=== PATIENT | female | born 1990 | race Caucasian/White ===

== ENCOUNTER 2017-02-08 05:53 | Inpatient (IN) ==
[2017-02-08] MEDS ORDERED: ONDANSETRON 4 MG/2 ML VIAL IV PRN ×2 (06:21→08:59)
[2017-02-08] MEDS: LACTATED RINGERS 1,000 ML IV SCH ×3 (06:33→15:08)
[2017-02-08] MEDS ORDERED: FAMOTIDINE 20 MG/2 ML VIAL IV ONE (06:43)
[2017-02-08] MEDS ORDERED: CITRIC ACID/SODIUM CITRATE 30 ML UDCUP PO ONE (06:43)
[2017-02-08] MEDS ORDERED: hydrALAZINE 20 MG/1 ML VIAL IV ONE (06:44)
[2017-02-08] MEDS ORDERED: OXYTOCIN/LR 20 UNIT/1,000 ML BAG IV ONE ×5 (06:48→08:59)
[2017-02-08] MEDS ORDERED: HYDROmorphone 2 MG/1 ML VIAL ONE (06:48)
[2017-02-08] MEDS ORDERED: ceFAZolin 2,000 MG in PREMIX 1 EACH IV ONE ×2 (06:48→06:58)
--- NOTE | 2017-02-08 07:01 | OB/GYN History & Physical ---
History of Present Illness Chief complaint: at 30 weeks IUFD PIH beginning at 20 weeks History of present illness: Ms. Velarde is a 26 year old female 2 para 1 at 30 weeks just gestational age previous who has been seen by perinatology every 3 weeks in conjunction with my office for PIH beginning at 20 weeks. Patient is currently on polypharmacy for blood pressure regulation coordinated by Dr. Gabriel. Patient was seen earlier this week on Saturday in my office had a biophysical 8 out of 8 with normal fluid and no evidence of abnormality. She was seen [address] Gabriel's office and was noted to have a acute IUFD with normal fluid and no visible abnormality but absent cardiac activity. By his ultrasound patient been running in the 45th percentile on estimated weight. I discussed the case with Dr. Sanchez who is doing additional blood work to try to determine potential cause for this early onset PIH and demise. Patient did not have any of this with her first . The options were discussed with the patient and Dr. Zayas and I both believe that the best way to conclude this is with hysterotomy and evacuation of the uterus under general anesthesia. Patient has Yin rods in her back and does not wish to be awake during the procedure. She is consequently scheduled for hysterotomy this morning. The risks benefits and alternatives were explained the patient in detail and family and informed consent was obtained and all questions were answered to there satisfaction. Home Medications Medication Instructions Recorded Confirmed Type Labetalol Tab [Trandate Tab] 200 mg PO BID 12/14/16 12/14/16 History Pnv95/Ferrous Fumarate/FA 1 tablet PO DAILY 12/14/16 12/14/16 History [ Tablet] Allergies Allergy/AdvReac Type Severity Reaction Status Date / Time No Known Allergies Allergy Verified 12/14/16 10:37 12 point system: reviewed and no additional remarkable complaints except as stated Medical,Surgical,& Family Hx - Medical History Genitourinary: History of: Kidney Stones Musculoskeletal: History of: Back/Neck Problems No history of: Amputation - Surgical History Cardiac Surgeries: Patient Denies: Cardiac Catheterization Thoracic Surgeries: Patient denies;: Lobectomy Neurologic Surgeries: Patient denies: Neurologic Surgery Reproductive Surgeries: Surgical HX of;: Section (pre eclampsia), Genitourinary Surgery (renal stent placed by Dr. 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 General appearance: normal weight - Head Head exam: Present: normal inspection, atraumatic - ENT ENT exam: Present: other (Facial edema) - Neck Neck exam: Present: normal inspection - Respiratory Respiratory exam: Present: clear to auscultation bilaterally - Breast Breasts: as per HPI Menstruation: as per HPI - Cardiovascular Cardiovascular exam: Present: regular rate and rhythm - GI/Abdominal GI/Abdominal exam: Present: normal bowel sounds - Extremities Exam Extremities exam: Present: normal inspection, normal capillary refill - Back Exam Back exam: Present: normal inspection - Neurological Exam Neurological exam: Present: alert, oriented X3 - Psychiatric Psychiatric exam: Present: anxious - Skin Skin exam: Present: normal color, warm Assessment and Plan (1) demise in forman greater than 22 weeks gestation, antepartum Status: Acute Current Visit: Yes (2) Severe hypertension Status: Acute Current Visit: Yes (3) Previous section Status: Acute Current Visit: Yes
[2017-02-08] MEDS ORDERED: LABETALOL 100 MG/20 ML VIAL IV ONE (07:08)
[2017-02-08] MEDS ORDERED: hydrALAZINE 20 MG/1 ML VIAL ONE (07:08)
[2017-02-08] MEDS ORDERED: NEOSTIGMINE 10 MG/10 ML VIAL ONE (07:08)
[2017-02-08] MEDS ORDERED: ONDANSETRON 4 MG/2 ML VIAL ONE (07:08)
[2017-02-08] MEDS ORDERED: SUCCINYLCHOLINE 200 MG/10 ML VIAL ONE (07:08)
[2017-02-08] MEDS ORDERED: ROCURONIUM 100 MG/10 ML VIAL IV ONE (07:08)
[2017-02-08] MEDS ORDERED: PROMETHAZINE 25 MG/1 ML VIAL ONE (07:08)
[2017-02-08] MEDS ORDERED: GLYCOPYRROLATE 0.4 MG/2 ML VIAL ONE (07:08)
[2017-02-08] MEDS ORDERED: PROPOFOL 200 MG/20 ML VIAL IV ONE (07:08)
[2017-02-08] MEDS ORDERED: DEXAMETHASONE 4 MG/1 ML VIAL ONE (07:08)
[2017-02-08 07:09] LABS: Basophils % 0.3 % (0.0-0.8); Eosinophils % 0.6 % (0.00-10.9); Hematocrit 30.2 VOL% (35.7-47.0); Hemoglobin 11.1 GM/DL (12.0-16.0); Immature Granulocytes % 0.4 %; Immature Granulocytes Absolute 0.03 #; Lymphocytes # 1.8 10*3/uL (1.4-4.0); Lymphocytes % 25.5 % (21.3-54.2); Mean Corpuscular HGB Conc 36.8 GM/DL (32-36); Mean Corpuscular Hemoglobin 31 PG (27-34); Mean Corpuscular Volume 84.1 FL (87-102); Mean Platelet Volume 9.2 FL (9.6-12.0); Monocytes # 0.7 10*3/uL (0.11-0.8); Monocytes % 9.2 % (1.7-12.7); Neutrophils # 4.6 10*3/uL (1.4-7.4); Platelet Count 149 T/CUMM (130-400); Red Blood Count 3.59 MC/CUMM (3.8-5.5); Red Cell Distribution Width 12.6 % (9.3-17.3); White Blood Count 7.1 T/CUMM (4-12)
[2017-02-08 07:26] LABS: INR 0.9; PT Patient Result 9.7 SECS; Partial Thromboplastin Time 24.5 SECS (0-40)
[2017-02-08 07:44] LABS: Albumin 1.9 G/DL (3.4-5.0); Bilirubin,Total 0.4 MG/DL (0.2-1.0); Calcium 8.1 MG/DL (8.5-10.1); Osmolality,Calculated 277.4 MOS/KG (273-304); Uric Acid 4.7 MG/DL (2.6-6.0)
[2017-02-08 08:54] LABS: Apearance,Urine CLEAR (Clear); Bacteria,Urine Many /HPF (Few); Bilirubin,Urine Negative (Negative); Blood, Urine Negative (Negative); Glucose,Urine (UA) Negative (Negative); Ketones,Urine Negative (Negative); Mucus,Urine Occasional /LPF (Occasional); Nitrite,Urine Negative (Negative); Protein,Urine 100 MG/DL; RBC,Urine 3 /HPF (0-4); Urine Color Straw (Yellow); Urine Specific Gravity 1.004 (1.001-1.035); Urine Urobilinogen < 2.0 EU/DL (0.2-1.0); WBC,Urine 5 /HPF (0-6)
[2017-02-08] MEDS ORDERED: diphenhydrAMINE 50 MG/1 ML VIAL IV PRN ×2 (08:56)
[2017-02-08] MEDS ORDERED: hydrOXYzine HCL 25 MG/1 ML VIAL IM PRN (08:56)
--- NOTE | 2017-02-08 08:58 | Operative Note ---
Date of procedure: 02/08/17 Pre-op diagnosis: demise at 30 weeks hypertension since 20 weeks with acute exacerbatio Post-op diagnosis: same Procedure: This is Dr. Canchola dictating operative note: Preoperative diagnosis intrauterine intrauterine at 30 weeks 2. demise 3. Previous 4. Hypertension since 20 weeks with acute exacerbation followed jointly with perinatology Postoperative diagnosis same Procedure repeat /hysterotomy Surgeon Dr. Canchola Anesthesia [general endotracheal] Findings non-liveborn infant weight 2 lbs. 2 oz. 2. Light meconium-stained fluid 3. Normal-appearing placenta Complications none Estimated blood loss [400] mL Disposition patient to recovery room in [stable] condition. Operative description: After the risks benefits and alternatives were explained to the patient in detail and informed consent was obtained, the patient was taken to the operating room where she was placed in the supine position. After achieving appropriate anesthesia the abdomen was prepped and draped in the usual sterile fashion. A Dawson catheter was placed without difficulty. After the appropriate time out and after adequate anesthesia was ascertained a Pfannenstiel skin incision was made and carried down through the subcutaneous tissue down to the fascia. The fascia was nicked in the midportion and undermined and incised both laterally and cephalad using sharp dissection with the curved Anderson scissors. 2 Garcia clamps were used to elevate the rectus fascia superiorly which was bluntly and sharply dissected away from the rectus muscle below. This was repeated inferiorly. The rectus muscles were then bluntly in the midline the peritoneum identified grasped with 2 curved hemostats and entered sharply using the curved Metzenbaum scissors. A bladder blade was then placed in the pelvis and a bladder flap was created off the lower uterine segment using sharp dissection with the Metzenbaum scissors. The bladder blade was then repositioned. A transverse incision was made across the lower uterine segment down to the amnion. Entry into the amnion revealed light meconium stained fluid. The uterine incision was extended laterally using bilateral finger fractionation and the nonviable was vertex presentation and was extracted without difficulty. The cord was doubly clamped cut and there was no gross visible abnormality associated with the . The placenta was manually extracted and again there was no evidence of any gross abnormality. The uterus was then exteriorized and placed in a wet laparotomy sponge. 2 fingers wrapped around a wet laparotomy sponge were used to remove all residual membranes from the uterine cavity. The uterus was then closed in 2 layers. The first layer of myometrium was closed with #1 Monocryl suture in an inner locking fashion beginning at both angles and overlapping slightly in the midline. The second layer of myometrium was closed with #1 Monocryl suture in a running imbricating stitch beginning at the right angle and continuing the length of the uterine incision. Hemostasis was noted to be excellent. The posterior cul-de-sac was then irrigated and cleansed with a wet laparotomy sponge and the uterus was placed back in the abdominal cavity. Both pericolic gutters were then irrigated and cleansed with a wet lap sponge. The uterine incision was then re-irrigated and again noted to be hemostatic. All counts were noted to be correct. The subcutaneous tissue was then closed using 3-0 Vicryl suture in a running fashion. The subfascial area was made hemostatic using electrocautery and closed with #1 PDS suture in a running fashion beginning at both angles and overlapping slightly in the midline. The subcutaneous tissue was irrigated and made hemostatic using electrocautery and closed with 2-0 Vicryl suture in a running fashion and the skin was closed with wide skin adi and a sterile pressure bandage was applied to the wound. All sponge needle and instrument counts were correct -3 at the end of the procedure. The patient's urine was [clear] both at the beginning in the end of the procedure. The patient was taken to the recovery room in stable condition Anesthesia: CIPRIANO Surgeon / Physician: Niko Canchola Estimated blood loss: other (400) Specimens: other (Placenta to pathology infant prepared for reviewing) Condition: stable Disposition: floor Results - Labs CBC & BMP: 02/08/17 07:02 02/08/17 07:02 Discharge Plan - Discharge Medications No Action Pnv95/Ferrous Fumarate/FA [ Tablet] 1 tablet PO DAILY Labetalol Tab [Trandate Tab] 500 mg PO BID - Follow Up or Referral - Forms/Instructions
[2017-02-08] MEDS ORDERED: ACETAMINOPHEN 325 MG TABLET PO PRN (08:59)
[2017-02-08] MEDS ORDERED: oxyCODONE/ACETAMINOPHEN 5-325 MG TABLET PO PRN (08:59)
[2017-02-08] MEDS ORDERED: WITCH HAZEL PADS 100/JAR TOP PRN (08:59)
[2017-02-08] MEDS ORDERED: LANOLIN 50% CREAM 0.3 OZ TUBE TOP PRN (08:59)
[2017-02-08] MEDS ORDERED: DIPH/TET/ACEL PERT BOOSTER VACCINE 0.5 ML VIAL IM ONE (08:59)
[2017-02-08] MEDS ORDERED: IBUPROFEN 800 MG TABLET PO PRN (08:59)
[2017-02-08] MEDS ORDERED: BISACODYL 10 MG SUPP RECTAL PRN (08:59)
[2017-02-08] MEDS ORDERED: BENZOCAINE 20%/MENTHOL 0.5% SPRAY 56 GM CAN TOP PRN (08:59)
[2017-02-08] MEDS ORDERED: MEASLES/MUMPS/RUBELLA VACCINE 0.5 ML VIAL SUBCUT ONE (08:59)
[2017-02-08] MEDS ORDERED: RHO(D) IMMUNE GLOBULIN 300 MCG SYRINGE IM ONE (08:59)
[2017-02-08] MEDS ORDERED: HYDROCORTISONE 2.5% RECTAL CREAM 30 GM TUBE TOP PRN (08:59)
[2017-02-08] MEDS ORDERED: HYDROmorphone PCA 30 MG/30 ML SYRINGE IV SCH (09:00)
[2017-02-08] MEDS ORDERED: MIDAZOLAM 2 MG/2 ML VIAL ONE (09:32)
[2017-02-08] MEDS ORDERED: SEVOFLURANE 1 UNIT/15 MINUTE INH ONE (09:32)
[2017-02-08] MEDS ORDERED: fentaNYL 100 MCG/2 ML VIAL ONE (09:33)
[2017-02-08] MEDS ORDERED: SCOPOLAMINE 1.5 MG PATCH TRANSDERM ONE (09:33)
[2017-02-08] MEDS: KETOROLAC 30 MG/1 ML VIAL IV SCH ×3 (10:00→21:48)
[2017-02-08] MEDS: LABETALOL 200 MG TABLET PO SCH ×2 (13:45→21:48)
--- NOTE | 2017-02-08 14:49 | Anesthesia ---
Anesthesia Post OP - Post Ansesthetic Evaluation Patient seen in post op: Yes Resp: within normal limits CV: within normal limits Mental: within normal limits Temp: within normal limits [id number]-[id number]-Ansdnzsmp: within normal limits Nausea and Vomiting: within normal limits Pain: within normal limits
[2017-02-08] MEDS ORDERED: POTASSIUM CHLORIDE 20 MEQ TABLET PO ONE (17:07)
--- NOTE | 2017-02-08 17:10 | Hospitalist Consult Note ---
Assessment and Plan (1) Severe hypertension Status: Acute Assessment and plan: I believe the patient has essential hypertension underlying and prior to this . She will likely need to start on an angiotensin receptor jurgen with a diuretic component. While beta-blockers are preferred in patients, in a young person it may produce fatigue, decreased libido, and some weight gain and is therefore avoided. I would like to give her a dose of Lasix today to help with the edema and likely lower her blood pressure. We can start her on Diovan hydrochlorothiazide tomorrow. I will add a BMP to her morning labs to check electrolytes after diuretics. Current Visit: Yes (2) demise in forman greater than 22 weeks gestation, antepartum Status: Acute Current Visit: Yes (3) Previous section Status: Acute Current Visit: Yes History of Present Illness - Data of Consult Patient: new to practice Consult date: 02/08/17 - Consult Narrative Reason for consult: Medical management of hypertension History of present illness: Ms. Velarde is a 26 year old female that suffered a demise at 31 weeks. She underwent repeat this morning. I was consulted postoperatively for management of her uncontrolled hypertension. Patient seen and examined in room 163 with her nurse and at the bedside. The patient gives a history of pre-existing hypertension prior to . She reports having diastolic blood pressures as high as 114. She is unsure of what her systolic blood pressure has been in the past but reports that she did have elevated blood pressure on several occasions prior to this . She also gives a family history of hypertension. She was not on blood pressure medications prior to this and has been up titrated on labetalol and Procardia. 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 IV hydralazine is ordered but has not had to be given. The patient is visibly swollen and edematous in her lower extremities as well as in her face. She denies any chest pain or shortness of breath. CC: Brooklynn Recio elevated BP - Home Medications and Allergies Home Medications: Home Medications Medication Instructions Recorded Confirmed Type Pnv95/Ferrous Fumarate/FA 1 tablet PO DAILY 12/14/16 02/08/17 History [ Tablet] Labetalol Tab [Trandate Tab] 500 mg PO BID 02/08/17 02/08/17 History Allergies/Adverse Reactions: Allergies Allergy/AdvReac Type Severity Reaction Status Date / Time No Known Allergies Allergy Verified 12/14/16 10:37 Medical,Surgical,& Family Hx - Medical History Cardio: History of: Hypertension Genitourinary: History of: Kidney Stones Musculoskeletal: History of: Back/Neck Problems No history of: Amputation - Surgical History Cardiac Surgeries: Patient Denies: Cardiac Catheterization Thoracic Surgeries: Patient denies;: Lobectomy Neurologic Surgeries: Patient denies: Neurologic Surgery Reproductive Surgeries: Surgical HX of;: Section (pre eclampsia), Genitourinary Surgery (renal stent placed by Dr. Ngo approximately) - Family History Family History: Reports;: Family Hypertension (mom dad g dad dads side), Family Psychiatric Problems (uncle on mom side schitzophrenic autism little brother) Denies;: Family Anesthesia Reaction, Family Cancer, Family Diabetes, Family Heart Disease, Family Hematology, Family Stroke, Additional Family History - Social History Smoking Status: Never smoker Have you smoked in the last 12 months: No Frequency of Alcohol Use: None Type of Drug Use: None Marital Status: Lives With:: Spouse Functional capacity: independent ambulation 12 point system: reviewed and no additional remarkable complaints except as stated - Cardiovascular Cardiovascular: Present: as per HPI, edema Exam - Constitutional Vitals: Period Temp Pulse Resp BP Sys/Jauregui Pulse Ox Last 24 Hr 97.1 F-97.4 F 69-80 16-18 130-156/78-99 97-98 Exam: Constitutional System: No distress. No tremulousness. Head: Normocephalic, atraumatic. Ears, Nose and Throat System: No pain or tenderness. No epistaxis or discharge Eyes System: Pupils equal, round, and reactive. Extraocular muscles intact. Neck: Supple, without adenopathy, No jugular venous distention. No thyromegaly, neck mass, or prior surgery apparent. Respiratory System: Chest clear to auscultation. Cardiovascular System: Heart with regular rate and rhythm. No murmur. GI System: Abdomen soft, nontender. Normo active bowel sounds present. Postop changes noted Musculoskeletal System: limbs with bilateral pitting pedal edema. Full distal pulses. Neurological System: No discernable sensory deficit. No aphasia Psychiatric System: Conversation is rational Results - Labs CBC & BMP: 02/08/17 07:02 02/08/17 07:02 Lab Results: I have reviewed the past 24 hour labs Quality Measures - VTE Contraindication to Pharmacological VTE Prophylaxis: Clinical assessment deems Pt at low risk, no prophalaxis needed
[2017-02-08] MEDS ORDERED: FUROSEMIDE 40 MG/4 ML VIAL IV ONE (17:34)
[2017-02-09 03:34] LABS: Basophils % 0.3 % (0.0-0.8); Eosinophils % 0.3 % (0.00-10.9); Hematocrit 24.4 VOL% (35.7-47.0); Hemoglobin 8.7 GM/DL (12.0-16.0); Immature Granulocytes % 0.5 %; Immature Granulocytes Absolute 0.06 #; Lymphocytes # 2.5 10*3/uL (1.4-4.0); Lymphocytes % 21.6 % (21.3-54.2); Mean Corpuscular HGB Conc 35.7 GM/DL (32-36); Mean Corpuscular Hemoglobin 31 PG (27-34); Mean Corpuscular Volume 85.6 FL (87-102); Mean Platelet Volume 9.5 FL (9.6-12.0); Monocytes # 0.8 10*3/uL (0.11-0.8); Monocytes % 6.8 % (1.7-12.7); Neutrophils # 8.3 10*3/uL (1.4-7.4); Neutrophils % 70.5 % (38.7-73.9); Platelet Count 163 T/CUMM (130-400); Red Blood Count 2.85 MC/CUMM (3.8-5.5); Red Cell Distribution Width 13.2 % (9.3-17.3); White Blood Count 11.7 T/CUMM (4-12)
[2017-02-09 04:00] LABS: Calcium 6.8 MG/DL (8.5-10.1); Magnesium 1.7 MG/DL (1.8-2.4); Osmolality,Calculated 277.5 MOS/KG (273-304); Potassium 4.2 MMOL/L (3.5-5.1)
[2017-02-09] MEDS: DOCUSATE SODIUM 100 MG CAPSULE PO SCH ×3 (05:13→21:02)
[2017-02-09] MEDS: KETOROLAC 30 MG/1 ML VIAL IV SCH (05:13)
--- NOTE | 2017-02-09 08:41 | OB/GYN Progress Note ---
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 She is tolerating her diet. She is alert and oriented -3 Cardiovascular regular rate and rhythm Lungs clear to auscultation Abdomen soft with appropriate tenderness and bowel sounds are present and her incision is dry no bleeding Is good refill HEENT shows pink conjunctiva [place] assessment 1 day of surgery doing well Plan continue present management with expected DC in a.m. 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 - Constitutional Vitals: Vital Signs Temp Pulse Pulse Resp BP BP Pulse Ox 02/09/17 07:45 98.0 F 79 20 134/77 02/09/17 04:00 98.2 F 97 H 97 H 18 137/82 137/82 97 02/09/17 02:00 18 02/09/17 00:00 98.1 F 81 81 18 132/64 132/64 95 02/08/17 20:00 98.1 F 82 82 18 154/81 154/81 96 02/08/17 17:07 72 16 150/100 02/08/17 16:00 72 16 130/94 02/08/17 15:13 78 18 140/87 97 02/08/17 15:00 97.1 F L 69 17 156/87 02/08/17 14:00 78 18 140/87 02/08/17 13:30 73 16 149/78 02/08/17 13:00 97.4 F L 76 76 16 136/87 136/87 97 02/08/17 10:00 80 18 145/99 98 Pulse Ox 02/09/17 07:45 97 02/09/17 04:00 97 02/09/17 02:00 02/09/17 00:00 95 02/08/17 20:00 96 02/08/17 17:07 02/08/17 16:00 02/08/17 15:13 02/08/17 15:00 02/08/17 14:00 02/08/17 13:30 02/08/17 13:00 02/08/17 10:00 Results - Labs CBC & BMP: 02/09/17 03:28 02/09/17 03:28
[2017-02-09] MEDS: MULTIVITAMIN (PRENATAL) TABLET PO SCH (09:20)
[2017-02-09] MEDS: FERROUS SULFATE 325 MG TABLET PO SCH ×3 (09:20→21:02)
[2017-02-09] MEDS: VALSARTAN/HCTZ 80-12.5 MG TABLET PO SCH (09:20)
[2017-02-09] MEDS ORDERED: FUROSEMIDE 40 MG/4 ML VIAL IV ONE ×2 (09:34→17:20)
--- NOTE | 2017-02-09 09:37 | Hospitalist Progress Note ---
Assessment and Plan (1) Severe hypertension Status: Acute Assessment and plan: I believe the patient has essential hypertension underlying and prior to this . She will likely need to start on an angiotensin receptor jurgen with a diuretic component. While beta-blockers are preferred in patients, in a young person it may produce fatigue, decreased libido, and some weight gain and is therefore avoided. I would like to give her a dose of Lasix today to help with the edema and likely lower her blood pressure. We can start her on Diovan hydrochlorothiazide tomorrow. I will add a BMP to her morning labs to check electrolytes after diuretics. 02/09/2017 Patient had a good response to Lasix IV overnight. Diovan HCT 80/12.5 started today. Hold labetalol for now. Current Visit: Yes (2) demise in forman greater than 22 weeks gestation, antepartum Status: Acute Current Visit: Yes (3) Previous section Status: Acute Current Visit: Yes Hospitalist: Subjective Interval history: Patient seen and examined with and nurse at the bedside. She had an uneventful night. Dawson catheter removed this morning. Blood pressure is much better controlled. Labetalol has been held. Diovan HCT started today. Good response with Lasix overnight. We will give 1 additional dose of 40 mg IV. Anticipate discharge tomorrow morning with a prescription for the Diovan hydrochlorothiazide 80/12.5 mg p.o. daily. Exam - Constitutional Vitals: Period Temp Pulse Resp BP Sys/Jauregui Pulse Ox Last 24 Hr 97.1 F-98.2 F 69-97 16-20 130-156/64-100 95-98 Exam: Constitutional System: No distress. No tremulousness. Head: Normocephalic, atraumatic. Ears, Nose and Throat System: No pain or tenderness. No epistaxis or discharge Eyes System: Pupils equal, round, and reactive. Extraocular muscles intact. Neck: Supple, without adenopathy, No jugular venous distention. No thyromegaly, neck mass, or prior surgery apparent. Respiratory System: Chest clear to auscultation. Cardiovascular System: Heart with regular rate and rhythm. No murmur. GI System: Abdomen soft, nontender. Normo active bowel sounds present. Postop changes noted Musculoskeletal System: limbs with bilateral pitting pedal edema- this has improved since yesterday. Full distal pulses. Neurological System: No discernable sensory deficit. No aphasia Psychiatric System: Conversation is rational Results - Labs CBC & BMP: 02/09/17 03:28 02/09/17 03:28 Lab Results: I have reviewed the past 24 hour labs Quality Measures - VTE Contraindication to Pharmacological VTE Prophylaxis: Clinical assessment deems Pt at low risk, no prophalaxis needed
[2017-02-09] MEDS: LABETALOL 200 MG TABLET PO SCH (11:10)
[2017-02-09] MEDS: oxyCODONE/ACETAMINOPHEN 5-325 MG TABLET PO PRN (14:15)
[2017-02-09] MEDS: hydrALAZINE 20 MG/1 ML VIAL IV PRN (20:55)
[2017-02-09] MEDS ORDERED: PROMETHAZINE 25 MG/1 ML VIAL IM ONE (23:35)
[2017-02-09] MEDS ORDERED: MEPERIDINE 25 MG/1 ML VIAL IM ONE (23:35)
[2017-02-10] MEDS: oxyCODONE/ACETAMINOPHEN 5-325 MG TABLET PO PRN ×5 (07:45→22:10)
[2017-02-10] MEDS ORDERED: MAGNESIUM HYDROXIDE SUSP 30 ML UDCUP PO PRN (07:45)
[2017-02-10] MEDS ORDERED: SIMETHICONE CHEW 80 MG TABLET PO PRN (07:46)
[2017-02-10] MEDS: MULTIVITAMIN (PRENATAL) TABLET PO SCH (08:50)
[2017-02-10] MEDS: DOCUSATE SODIUM 100 MG CAPSULE PO SCH ×2 (08:50→19:59)
[2017-02-10] MEDS: FERROUS SULFATE 325 MG TABLET PO SCH ×3 (08:50→19:59)
[2017-02-10] MEDS: LABETALOL 200 MG TABLET PO SCH ×2 (08:50→19:59)
[2017-02-10] MEDS: VALSARTAN/HCTZ 80-12.5 MG TABLET PO SCH (08:50)
--- NOTE | 2017-02-10 10:15 | OB/GYN Progress Note ---
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 She does exhibit symptoms of depression which is not unusual considering the circumstances. Offered to place her on an SSRI for treatment of the symptoms. Otherwise from a postoperative viewpoint she is doing well other than some difficulty with urination which is not uncommon also . 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
--- NOTE | 2017-02-10 10:47 | Event Note ---
The patient's chart was reviewed and the case discussed with the nursing staff. I have restarted her labetalol at 200 mg twice daily to avoid rebound tachycardia. She has had a couple of elevated readings. We will continue the Diovan and HCTZ combination and hopefully with the addition of labetalol, her blood pressure will become normal. Understandably, given the circumstances, she has been very emotional and crying and this may also be reflected in her blood pressure and tachycardia over the last 24 hours. Ultimately she has no symptoms from her elevated blood pressure. I have prepared the prescriptions in anticipation of her discharge for tomorrow. Please call me if you have any questions or for any status changes.
[2017-02-10] MEDS: hydrALAZINE 20 MG/1 ML VIAL IV PRN (19:30)
[2017-02-10] MEDS: CITALOPRAM 20 MG TABLET PO SCH (19:59)
[2017-02-11] MEDS: oxyCODONE/ACETAMINOPHEN 5-325 MG TABLET PO PRN ×4 (04:10→20:45)
--- NOTE | 2017-02-11 07:07 | Discharge Summary ---
Hospital Course - Hospital Course Hospital Course: Postoperatively the patient did well. Her blood pressure did remain labile and elevated and hospital medicine was consulted. Dr. Crowder changed her medications to include labetalol Diovan and hydrochlorothiazide. She is constantly discharged on this combination. Patient was also placed on Celexa each evening for anxiety depression and difficulty sleeping. She will be scheduled with a local medical doctor for management of her blood pressure if this continues to be elevated Diagnosis - Discharge Diagnosis (1) demise in forman greater than 22 weeks gestation, antepartum Status: Acute (2) Severe hypertension Status: Acute (3) Previous section Status: Acute Specialty Discharge - Follow Up or Referrals Discharge Plan - Discharge Data Disposition: Disch To Home/Self Care Condition at Discharge: Stable Activity: increase activity as tolerated, no lifting, other (Pelvic rest) Hygiene: may shower Weight Bearing at Discharge: full weight bearing Driving: not until seen by doctor Contact your physician if you experience:: fever over 101, Difficulty voiding, Redness or swelling, Nausea/Vomiting, Shortness of breath, Bleeding, pain uncontrolled by pain medications - Discharge Medications New Valsartan/Hctz 80-12.5 [Diovan Hct 80-12.5] 1 tablet PO DAILY #30 tablet Docusate Sodium Cap [Colace Cap] 100 mg PO BID capsule Ferrous Sulfate Tab [Feosol Original Tab] 325 mg PO TID tablet Multivitamin () [ Vitamin] 1 tablet PO DAILY tablet oxyCODONE/ACETAMINOPHEN 5-325 [Percocet 5-325] 1 tablet PO Q6H PRN #20 tablet PRN Reason: Pain Severe (8-10) Labetalol Tab [Trandate Tab] 200 mg PO BID #60 tablet Citalopram [CeleXA] 20 mg PO BEDTIME #30 tablet Discontinued Pnv95/Ferrous Fumarate/FA [ Tablet] 1 tablet PO DAILY Labetalol Tab [Trandate Tab] 500 mg PO BID - Follow Up or Referral Follow Up: Niko Canchola MD [Physician] - 1 Week - Forms/Instructions Instructions: Depression (GEN), Perineal Care (DC), Acute Wound Care (DC), Chronic Hypertension (DC), Bleeding (GEN) Exam - Constitutional Vitals: Period Temp Pulse Resp BP Sys/Jauregui Pulse Ox Last 24 Hr 97.0 F-98.7 F 87-103 16-20 131-168/70-116 95-99 DS: Provider Date of admission: 02/08/17 05:53 Primary care physician: Mindy Lemus Attending physician on admission: Brooklynn Recio Consults: 02/08/17 06:22 Consult to Anesthesiology [CONS] Routine Consulting Provider: Reason for Anesthesiology: Epidural Consult Comment: Epidural for pain managment 02/08/17 08:40 Consult to Physician [CONS] Routine Comment: HOSP MEDICINE TO EVALUATE ELEVATED BP Consulting Provider: 02/08/17 09:00 Consult to Gas Mask Assembler [CONS] Routine Consult Gas Mask Assembler: Breast Feeding Discharging clinician: Brooklynn Recio Expected date of discharge: 02/11/17
[2017-02-11] MEDS: VALSARTAN/HCTZ 80-12.5 MG TABLET PO SCH (08:00)
[2017-02-11] MEDS: LABETALOL 200 MG TABLET PO SCH ×2 (08:00→20:48)
[2017-02-11 10:56] LABS: Basophils % 0.2 % (0.0-0.8); Eosinophils # 0.1 10*3/uL (0.0-0.87); Eosinophils % 1.2 % (0.00-10.9); Hematocrit 25.5 VOL% (35.7-47.0); Hemoglobin 9.1 GM/DL (12.0-16.0); Immature Granulocytes % 0.4 %; Immature Granulocytes Absolute 0.04 #; Lymphocytes # 1.5 10*3/uL (1.4-4.0); Lymphocytes % 16.4 % (21.3-54.2); Mean Corpuscular HGB Conc 35.7 GM/DL (32-36); Mean Corpuscular Hemoglobin 31 PG (27-34); Mean Corpuscular Volume 87.3 FL (87-102); Mean Platelet Volume 8.7 FL (9.6-12.0); Monocytes # 0.5 10*3/uL (0.11-0.8); Monocytes % 5.9 % (1.7-12.7); Neutrophils # 6.8 10*3/uL (1.4-7.4); Neutrophils % 75.9 % (38.7-73.9); Platelet Count 215 T/CUMM (130-400); Red Blood Count 2.92 MC/CUMM (3.8-5.5); Red Cell Distribution Width 13.1 % (9.3-17.3); White Blood Count 8.9 T/CUMM (4-12)
[2017-02-11] MEDS: METOPROLOL TARTRATE 5 MG/5 ML VIAL IV ONE ×2 (11:16→11:50)
[2017-02-11] MEDS: hydrALAZINE 20 MG/1 ML VIAL IV PRN (11:17)
[2017-02-11] MEDS: FERROUS SULFATE 325 MG TABLET PO SCH ×3 (12:04→20:46)
[2017-02-11] MEDS: MULTIVITAMIN (PRENATAL) TABLET PO SCH (12:04)
[2017-02-11] MEDS: DOCUSATE SODIUM 100 MG CAPSULE PO SCH ×2 (12:04→20:48)
--- NOTE | 2017-02-11 12:41 | Pathology Report from [facility] ---
ACCESSION # : [id number] PATIENT NAME : Lena Velarde ORDERING DR : GUANAKO KOHLI MD CLINICAL HX: Repeat delivery, intrauterine demise @ 31 wks POST-OP DX: Same SPECIMEN INFO: Placenta GROSS DESCRIPTION: Received fresh labeled "LENA VELARDE & PLACENTA" is a 150 gm placenta measuring 17.0 x 4.5 x 1.2 cm. The membranes are pink hager and translucent. The umbilical cord measures 19.0 cm, contains three vessels and is eccentrically inserted. The cord is somewhat edematous. The surface is blue douglas and intact. The maternal surface displays mildly disrupted cotyledons with no abnormalities appreciated upon sectioning. Sections submitted A- membranes and cord, B- and maternal surfaces. DIAGNOSIS FOR LENA VELARDE: PLACENTA, MEMBRANES, UMBILICAL CORD: Focal placental infarction, mild intervillous blood. Tri-vessel umbilical cord, eccentrically inserted. Membranes with focal chronic inflammation and attached blood. SERVICE DATE: 02/08/2017 REPORT DATE: 02/11/2017 PATHOLOGIST: Jodie Spear
[2017-02-11] MEDS ORDERED: LABETALOL 200 MG TABLET PO ONE (13:59)
[2017-02-11] MEDS ORDERED: VALSARTAN/HCTZ 80-12.5 MG TABLET PO ONE (15:58)
--- NOTE | 2017-02-11 16:08 | Hospitalist Progress Note ---
Assessment and Plan (1) Severe hypertension Status: Acute Assessment and plan: The patient's blood pressure has been difficult to manage with labetalol and Diovan. I will increase her Diovan to 160/25 mg p.o. daily starting tomorrow morning. A second dose of Diovan has been ordered for today. Labetalol will also be increased to her previous dose of 500 mg by mouth twice daily. This may be titrated down over time after discharge. The patient still has a bit of edema in her lower extremities although it is much improved. She received 2 doses of Lasix over the weekend. If her blood pressure is stable on the increased dose of labetalol 500 p.o. twice daily and Diovan 160/25 p.o. daily then she can go home in the morning. Current Visit: Yes (2) demise in forman greater than 22 weeks gestation, antepartum Status: Acute Current Visit: Yes (3) Previous section Status: Acute Current Visit: Yes Hospitalist: Subjective Interval history: Patient seen and examined. She was anticipating discharge today however her blood pressures have been high despite adding Diovan hydrochlorothiazide. I have tried to reduce her labetalol dose however she does not appear to be tolerating it well. Her diastolic and systolic blood pressures have increased as well as her tachycardia. I have asked that she stay 1 more day so that we can uptitrate her medications and ensure an adequate blood pressure prior to discharge. She also feels woozy and has a slight headache. A CBC was checked and hemoglobin was adequate. Exam - Constitutional Vitals: Period Temp Pulse Resp BP Sys/Jauregui Pulse Ox Last 24 Hr 97.3 F-98.1 F 86-104 16-20 131-173/70-130 95-99 Exam: Constitutional System: No distress. No tremulousness. Head: Normocephalic, atraumatic. Ears, Nose and Throat System: No pain or tenderness. No epistaxis or discharge Eyes System: Pupils equal, round, and reactive. Extraocular muscles intact. Neck: Supple, without adenopathy, No jugular venous distention. No thyromegaly, neck mass, or prior surgery apparent. Respiratory System: Chest clear to auscultation. Cardiovascular System: Heart with regular rate and rhythm. No murmur. GI System: Abdomen soft, nontender. Normo active bowel sounds present. Postop changes noted Musculoskeletal System: limbs with bilateral pitting pedal edema- this has improved since yesterday. Full distal pulses. Neurological System: No discernable sensory deficit. No aphasia Psychiatric System: Conversation is rational Results - Labs CBC & BMP: 02/11/17 10:47 02/09/17 03:28 Lab Results: I have reviewed the past 24 hour labs Quality Measures - VTE Contraindication to Pharmacological VTE Prophylaxis: Clinical assessment deems Pt at low risk, no prophalaxis needed Specialty Discharge - Follow Up or Referrals Follow up with: Niko Canchola MD [Physician] - 02/15/17 9:15 am (Call office to make a 1 week follow up appointment.)
[2017-02-11] MEDS ORDERED: MAGNESIUM SULF RIDER 2 GM in PREMIX 1 EACH IV ONE (16:30)
[2017-02-11] MEDS: LABETALOL 100 MG TABLET PO SCH (20:46)
[2017-02-11] MEDS: CITALOPRAM 20 MG TABLET PO SCH (20:49)
[2017-02-12 07:24] LABS: Magnesium 2.5 MG/DL (1.8-2.4); Osmolality,Calculated 277.3 MOS/KG (273-304); Potassium 3.7 MMOL/L (3.5-5.1)
[2017-02-12 07:45] LABS: Free T4 (Free Thyroxine) 1.04 NG/DL (0.76-1.46); Thyroid Stimulating Hormone 3.7 uIU/ml (0.358-3.74)
[2017-02-12] MEDS: LABETALOL 200 MG TABLET PO SCH (08:48)
[2017-02-12] MEDS: FERROUS SULFATE 325 MG TABLET PO SCH (08:48)
[2017-02-12] MEDS: MULTIVITAMIN (PRENATAL) TABLET PO SCH (08:48)
[2017-02-12] MEDS: DOCUSATE SODIUM 100 MG CAPSULE PO SCH (08:48)
[2017-02-12] MEDS: LABETALOL 100 MG TABLET PO SCH (08:49)
--- NOTE | 2017-02-12 08:56 | Hospitalist Progress Note ---
Assessment and Plan - Time spent with patient Time spent with patient: Greater than 30 minutes (1) Severe hypertension Status: Acute Assessment and plan: If her blood pressure is stable on the increased dose of labetalol 500 p.o. twice daily and Diovan 160/25 p.o. daily then she can go home today. Current Visit: Yes (2) demise in forman greater than 22 weeks gestation, antepartum Status: Acute Current Visit: Yes (3) Previous section Status: Acute Current Visit: Yes Hospitalist: Subjective Interval history: Patient seen and examined. She looks and feels much better this morning. Her blood pressures finally normalized around midnight last night after receiving additional doses of labetalol and Diovan. She is being discharged home today on labetalol 500 mg twice daily and Diovan 160/12.5 mg p.o. daily. She will follow-up with Dr. Canchola. Her and aunt were at the bedside. Exam - Constitutional Vitals: Period Temp Pulse Resp BP Sys/Jauregui Pulse Ox Last 24 Hr 97.4 F-98.9 F 81-97 18-18 136-164/89-115 96-99 Exam: Constitutional System: No distress. No tremulousness. Head: Normocephalic, atraumatic. Ears, Nose and Throat System: No pain or tenderness. No epistaxis or discharge Eyes System: Pupils equal, round, and reactive. Extraocular muscles intact. Neck: Supple, without adenopathy, No jugular venous distention. No thyromegaly, neck mass, or prior surgery apparent. Respiratory System: Chest clear to auscultation. Cardiovascular System: Heart with regular rate and rhythm. No murmur. GI System: Abdomen soft, nontender. Normo active bowel sounds present. Postop changes noted Musculoskeletal System: limbs with no pedal edema- this has improved since yesterday. Full distal pulses. Neurological System: No discernable sensory deficit. No aphasia Psychiatric System: Conversation is rational Results - Labs CBC & BMP: 02/11/17 10:47 02/12/17 06:36 Lab Results: I have reviewed the past 24 hour labs Quality Measures - VTE Contraindication to Pharmacological VTE Prophylaxis: Clinical assessment deems Pt at low risk, no prophalaxis needed Specialty Discharge - Follow Up or Referrals Follow up with: Niko Canchola MD [Physician] - 04/07/17 9:15 am (Call office to make a 1 week follow up appointment.)
[2017-02-12] MEDS ORDERED: VALSARTAN/HCTZ 160-12.5 MG TABLET PO SCH (09:00)
[2017-02-12] MEDS: oxyCODONE/ACETAMINOPHEN 5-325 MG TABLET PO PRN (10:35)
[2017-02-12] MEDS ORDERED: cloNIDine 0.1 MG TABLET PO STA (11:19)
[2017-02-12 14:21] VITALS: BP 151/100
== END 2017-02-12 13:40 | disposition home or self-care (01) | DRG 765 ==
LOC: N.LD 05:53 → N.OB 12:42
PROVIDERS: ADMIT Specialist; ATTEND Specialist
PROC: LDCSECT (ICD-10-PCS; 2017-02-08 07:45)

== ENCOUNTER 2018-01-23 14:15 | Inpatient (IN) ==
[2018-01-23] MEDS ORDERED: ceFAZolin 2,000 MG in PREMIX 1 EACH IV ONE (14:25)
[2018-01-23] MEDS ORDERED: FAMOTIDINE 20 MG/2 ML VIAL IV ONE (14:25)
[2018-01-23] MEDS ORDERED: CITRIC ACID/SODIUM CITRATE 30 ML UDCUP PO ONE (14:25)
[2018-01-23] MEDS: LACTATED RINGERS 1,000 ML IV SCH ×2 (14:50→18:16)
[2018-01-23 15:14] LABS: Basophils # 0.1 10*3/uL (0.0-0.2); Basophils % 0.7 % (0.0-0.8); Eosinophils # 0.2 10*3/uL (0.0-0.87); Hematocrit 33.6 VOL% (35.7-47.0); Hemoglobin 11.9 GM/DL (12.0-16.0); Immature Granulocytes % 0.7 %; Immature Granulocytes Absolute 0.07 #; Lymphocytes # 2.5 10*3/uL (1.4-4.0); Lymphocytes % 24.1 % (21.3-54.2); Mean Corpuscular HGB Conc 35.4 GM/DL (32-36); Mean Corpuscular Hemoglobin 30 PG (27-34); Mean Corpuscular Volume 84.8 FL (87-102); Mean Platelet Volume 9.8 FL (9.6-12.0); Monocytes # 0.7 10*3/uL (0.11-0.8); Monocytes % 6.4 % (1.7-12.7); Neutrophils # 6.9 10*3/uL (1.4-7.4); Neutrophils % 66.1 % (38.7-73.9); Platelet Count 252 T/CUMM (130-400); Red Blood Count 3.96 MC/CUMM (3.8-5.5); Red Cell Distribution Width 12.9 % (9.3-17.3); White Blood Count 10.5 T/CUMM (4-12)
[2018-01-23 15:34] LABS: INR 0.9; PT Patient Result 9.9 SECS; Partial Thromboplastin Time 32.9 SECS (0-40)
[2018-01-23 15:36] LABS: Alanine Aminotransferase 12 U/L (13-56); Albumin 3.1 G/DL (3.4-5.0); Alkaline Phosphatase 136 U/L (45-117); Aspartate Amino Transferase 16 U/L (0-37); Bilirubin,Total < 0.39 MG/DL (0.2-1.0); Blood Urea Nitrogen 14 MG/DL (7-18); Calcium 10.1 MG/DL (8.5-10.1); Glucose 81 MG/DL (74-106); Osmolality,Calculated 267.2 MOS/KG (273-304); Potassium 4.3 MMOL/L (3.5-5.1); Sodium 134 MMOL/L (136-145); Total Protein 7.5 G/DL (6.4-8.3); Uric Acid 4.7 MG/DL (2.6-6.0)
[2018-01-23] MEDS ORDERED: OXYTOCIN/LR 20 UNIT/1,000 ML BAG IV ONE ×3 (16:06→17:31)
[2018-01-23] MEDS ORDERED: CARBOPROST TROMETHAMINE 250 MCG/ML AMP IM ONE ×2 (16:50)
[2018-01-23] MEDS ORDERED: miSOPROStol 200 MCG TABLET ONE (16:51)
[2018-01-23] MEDS ORDERED: miSOPROStol 200 MCG TABLET RECTAL ONE (17:00)
[2018-01-23 17:31] LABS: Cord Arterial Blood HCO3 25.1 MMOL/L
[2018-01-23] MEDS ORDERED: BENZOCAINE 20%/MENTHOL 0.5% SPRAY 56 GM CAN TOP PRN (17:31)
[2018-01-23] MEDS ORDERED: DIPH/TET/ACEL PERT BOOSTER VACCINE 0.5 ML VIAL IM ONE (17:31)
[2018-01-23] MEDS ORDERED: MEASLES/MUMPS/RUBELLA VACCINE 0.5 ML VIAL SUBCUT ONE (17:31)
[2018-01-23] MEDS ORDERED: ACETAMINOPHEN 325 MG TABLET PO PRN (17:31)
[2018-01-23] MEDS ORDERED: WITCH HAZEL PADS 100/JAR TOP PRN (17:31)
[2018-01-23] MEDS ORDERED: LANOLIN 50% CREAM 0.3 OZ TUBE TOP PRN (17:31)
[2018-01-23] MEDS ORDERED: RHO(D) IMMUNE GLOBULIN 300 MCG SYRINGE IM ONE (17:31)
[2018-01-23] MEDS ORDERED: HYDROCORTISONE 2.5% RECTAL CREAM 30 GM TUBE TOP PRN (17:31)
[2018-01-23] MEDS ORDERED: oxyCODONE/ACETAMINOPHEN 5-325 MG TABLET PO PRN (17:31)
[2018-01-23] MEDS ORDERED: BISACODYL 10 MG SUPP RECTAL PRN (17:31)
[2018-01-23 17:33] LABS: Apearance,Urine CLEAR (Clear); Bilirubin,Urine Negative (Negative); Blood, Urine Negative (Negative); Glucose,Urine (UA) Negative (Negative); Ketones,Urine Negative (Negative); Mucus,Urine Occasional /LPF (Occasional); Nitrite,Urine Negative (Negative); Protein,Urine Negative; RBC,Urine <1 /HPF (0-4); Urine Color Colorless (Yellow); Urine Specific Gravity 1.004 (1.001-1.035); Urine Urobilinogen < 2.0 EU/DL (0.2-1.0); WBC,Urine 1 /HPF (0-6)
[2018-01-23] MEDS ORDERED: SEVOFLURANE 1 UNIT/15 MINUTE INH ONE (17:46)
[2018-01-23] MEDS ORDERED: PROPOFOL 200 MG/20 ML VIAL IV ONE (17:46)
[2018-01-23] MEDS ORDERED: ONDANSETRON 4 MG/2 ML VIAL ONE (17:47)
[2018-01-23] MEDS ORDERED: PHENYLEPHRINE 1 MG/10 ML SYRINGE IV ONE (17:47)
[2018-01-23] MEDS ORDERED: MIDAZOLAM 2 MG/2 ML VIAL ONE (17:47)
[2018-01-23] MEDS ORDERED: fentaNYL 100 MCG/2 ML VIAL ONE (17:47)
[2018-01-23] MEDS ORDERED: DEXAMETHASONE 10 MG/1 ML VIAL ONE (17:47)
[2018-01-23] MEDS ORDERED: ROCURONIUM 100 MG/10 ML VIAL IV ONE (17:48)
[2018-01-23] MEDS ORDERED: SUCCINYLCHOLINE 200 MG/10 ML VIAL ONE (17:48)
[2018-01-23] MEDS ORDERED: hydrOXYzine HCL 25 MG/1 ML VIAL IM PRN (17:52)
[2018-01-23] MEDS ORDERED: diphenhydrAMINE 50 MG/1 ML VIAL IV PRN ×2 (17:52)
[2018-01-23] MEDS ORDERED: NALOXONE 0.4 MG/ML VIAL IV PRN (17:53)
[2018-01-23] MEDS ORDERED: MORPHINE PCA 30 MG/30 ML SYRINGE IV SCH ×2 (18:00→23:00)
[2018-01-23] MEDS: ONDANSETRON 4 MG/2 ML VIAL IV PRN ×2 (18:03→23:49)
[2018-01-23] MEDS ORDERED: KETOROLAC 30 MG/1 ML VIAL IV ONE (19:01)
[2018-01-23] MEDS ORDERED: LORazepam 2 MG/1 ML VIAL IV PRN (19:01)
[2018-01-23] MEDS ORDERED: LABETALOL 100 MG TABLET ONE ×2 (20:56→20:57)
[2018-01-23] MEDS ORDERED: LABETALOL 200 MG TABLET PO SCH (21:00)
[2018-01-23] MEDS: DOCUSATE SODIUM 100 MG CAPSULE PO SCH (21:05)
[2018-01-24] MEDS: ceFAZolin 2,000 MG in PREMIX 1 EACH IV SCH ×3 (00:49→17:27)
[2018-01-24 06:05] LABS: Basophils % 0.1 % (0.0-0.8); Hematocrit 23.3 VOL% (35.7-47.0); Hemoglobin 8.2 GM/DL (12.0-16.0); Immature Granulocytes % 0.6 %; Immature Granulocytes Absolute 0.09 #; Lymphocytes # 1.6 10*3/uL (1.4-4.0); Lymphocytes % 11.5 % (21.3-54.2); Mean Corpuscular HGB Conc 35.2 GM/DL (32-36); Mean Corpuscular Hemoglobin 30 PG (27-34); Mean Corpuscular Volume 85.7 FL (87-102); Mean Platelet Volume 9.7 FL (9.6-12.0); Monocytes # 0.9 10*3/uL (0.11-0.8); Monocytes % 6.7 % (1.7-12.7); Neutrophils # 11.2 10*3/uL (1.4-7.4); Neutrophils % 81.1 % (38.7-73.9); Platelet Count 203 T/CUMM (130-400); Red Blood Count 2.72 MC/CUMM (3.8-5.5); Red Cell Distribution Width 12.9 % (9.3-17.3); White Blood Count 13.9 T/CUMM (4-12)
[2018-01-24] MEDS: amLODIPine 10 MG TABLET PO SCH (09:20)
[2018-01-24] MEDS ORDERED: FUROSEMIDE 40 MG/4 ML VIAL IV ONE (09:34)
[2018-01-24] MEDS: oxyCODONE/ACETAMINOPHEN 5-325 MG TABLET PO PRN (15:35)
[2018-01-24] MEDS: IBUPROFEN 800 MG TABLET PO PRN (15:35)
[2018-01-24] MEDS: DOCUSATE SODIUM 100 MG CAPSULE PO SCH (21:37)
[2018-01-25] MEDS: IBUPROFEN 800 MG TABLET PO PRN ×2 (05:50→20:14)
[2018-01-25] MEDS: oxyCODONE/ACETAMINOPHEN 5-325 MG TABLET PO PRN ×3 (05:50→20:14)
[2018-01-25] MEDS: DOCUSATE SODIUM 100 MG CAPSULE PO SCH ×3 (09:54→20:15)
[2018-01-25] MEDS: amLODIPine 10 MG TABLET PO SCH (09:55)
[2018-01-25] MEDS: PHENAZOPYRIDINE 95 MG TABLET PO SCH (17:26)
[2018-01-26] MEDS: OXYBUTYNIN 5 MG TABLET PO SCH ×2 (00:11→08:39)
[2018-01-26] MEDS: IBUPROFEN 800 MG TABLET PO PRN (03:50)
[2018-01-26] MEDS: oxyCODONE/ACETAMINOPHEN 5-325 MG TABLET PO PRN ×3 (03:50→20:19)
[2018-01-26] MEDS: PHENAZOPYRIDINE 95 MG TABLET PO SCH ×3 (08:35→17:35)
[2018-01-26] MEDS: DOCUSATE SODIUM 100 MG CAPSULE PO SCH ×2 (08:38→20:19)
[2018-01-26] MEDS: amLODIPine 10 MG TABLET PO SCH (08:38)
[2018-01-26] MEDS: NITROFURANTOIN MACRO/MONO 100 MG CAPSULE PO SCH ×2 (12:05→20:25)
[2018-01-27] MEDS: OXYBUTYNIN 5 MG TABLET PO SCH ×2 (00:25→10:41)
[2018-01-27] MEDS: oxyCODONE/ACETAMINOPHEN 5-325 MG TABLET PO PRN ×2 (04:00→08:31)
[2018-01-27] MEDS: DOCUSATE SODIUM 100 MG CAPSULE PO SCH (08:31)
[2018-01-27] MEDS: PHENAZOPYRIDINE 95 MG TABLET PO SCH ×2 (08:31→16:01)
[2018-01-27] MEDS: amLODIPine 10 MG TABLET PO SCH (08:31)
[2018-01-27] MEDS: NITROFURANTOIN MACRO/MONO 100 MG CAPSULE PO SCH (08:32)
[2018-01-27 09:14] VITALS: BP 124/99
== END 2018-01-27 15:05 | disposition home or self-care (01) | DRG 765 ==
LOC: N.LDOUT 14:15 → N.LD 14:15 → N.OB 01-24 13:46
PROVIDERS: ADMIT Specialist; ATTEND Specialist
PROC: LDCSECT (ICD-10-PCS; 2018-01-23 16:30)